=== PATIENT | male | born 1980 | race Caucasian/White ===

== ENCOUNTER 2017-09-08 08:03 | Inpatient (IN) | payer BC ==
[2017-09-08] MEDS ORDERED: SODIUM CHLORIDE 0.9% 1,000 ML IV STA (08:23)
[2017-09-08] MEDS ORDERED: PIPERACILLIN-TAZOBACTAM 3.375 GM in DEXTROSE/WATER 1 50ML.BAG IVPB STA (08:27)
[2017-09-08 09:02] LABS: ALT 624 U/L (21-72); AST 662 U/L (17-59); Albumin 4.3 g/dL (3.5-5.0); Alkaline Phosphatase 203 U/L (38-126); Amylase 196 U/L (30-110); Anion Gap 11 mmol/L; Blood Urea Nitrogen 11 mg/dL (9-20); Calcium 9.2 mg/dL (8.4-10.2); Carbon Dioxide 24 mmol/L (22-30); Chloride 106 mmol/L (98-107); Glucose 107 mg/dL (74-99); Potassium 4.4 mmol/L (3.5-5.1); Sodium 141 mmol/L (137-145); Total Bilirubin 2.3 mg/dL (0.2-1.3)
--- NOTE | 2017-09-08 09:07 | ED ---
General Adult HPI - General Source: patient, RN notes reviewed, old records reviewed Mode of arrival: EMS Limitations: no limitations <David Bermudez - Last Filed: 09/08/17 10:04> <Ramirez Bravo - Last Filed: 09/08/17 12:17> - General Chief complaint: Abdominal Pain Stated complaint: Poss gallstones Time Seen by Provider: 09/08/17 08:13 - History of Present Illness Initial comments: Patient 36-year-old male presented to the emergency room via EMS transfer from [facility] for abdominal pain. Patient does admit that pain started 3 days ago. Patient does admit to some episodes of nausea vomiting. Patient did go to the hospital to be checked because symptoms seem to be increasing. He did have a CT performed which did show evidence for cholecystitis. Patient was transferred by EMS here to [facility] for surgical consult. Patient states pain is located in the upper abdomen. Patient does admit pain currently 5/10 at this time. Patient was given dose or Rocephin at [facility]. Patient's labs been reviewed white count was 11,000. Lactic acid 1.9. Patient denies any recent fever, chills, shortness of breath, chest pain, back pain, numbness or tingling, dysuria or hematuria, constipation or diarrhea, headaches or visual changes, or any other complaints. (David Bermudez) - Related Data Home Medications Medication Instructions Recorded Confirmed Cyanocobalamin (Vitamin B-12) 1,000 mcg PO DAILY 09/08/17 09/08/17 [Vitamin B-12] Lisinopril-Hctz 20-25 mg 1 tab PO HS 09/08/17 09/08/17 [Zestoretic 20-25] Multivitamins, Thera [Multivitamin 1 tab PO DAILY 09/08/17 09/08/17 (formulary)] [place]-3 Fatty Acids/Fish Oil [Fish 1 cap PO DAILY 09/08/17 09/08/17 Oil 1,000 mg Softgel] Allergies Allergy/AdvReac Type Severity Reaction Status Date / Time No Known Allergies Allergy Unverified 09/08/17 08:14 Review of Systems ROS Other: All systems not noted in ROS Statement are negative. <David Bermudez - Last Filed: 09/08/17 10:04> ROS Other: All systems not noted in ROS Statement are negative. <Ramirez Bravo - Last Filed: 09/08/17 12:17> ROS Statement: Those systems with pertinent positive or pertinent negative responses have been documented in the HPI. Past Medical History History of Any Multi-Drug Resistant Organisms: None Reported Past Surgical History: No Surgical Hx Reported Past Psychological History: No Psychological Hx Reported Smoking Status: Never smoker Past Alcohol Use History: Occasional Past Drug Use History: None Reported <AidanDavid - Last Filed: 09/08/17 10:04> General Exam Limitations: no limitations <AidanDavid - Last Filed: 09/08/17 10:04> General appearance: alert, in no apparent distress Head exam: Present: atraumatic, normocephalic, normal inspection Eye exam: Present: normal appearance, PERRL, EOMI. Absent: scleral icterus, conjunctival injection, periorbital swelling ENT exam: Present: normal exam, mucous membranes moist Neck exam: Present: normal inspection. Absent: tenderness, meningismus, lymphadenopathy Respiratory exam: Present: normal lung sounds bilaterally. Absent: respiratory distress, wheezes, rales, rhonchi, stridor Cardiovascular Exam: Present: regular rate, normal rhythm, normal heart sounds. Absent: systolic murmur, diastolic murmur, rubs, gallop, clicks GI/Abdominal exam: Present: soft, normal bowel sounds. Absent: distended, tenderness, guarding, rebound, rigid Extremities exam: Present: normal inspection, full ROM, normal capillary refill. Absent: tenderness, pedal edema, joint swelling, calf tenderness Back exam: Present: normal inspection Neurological exam: Present: alert, oriented X3, CN II-XII intact Psychiatric exam: Present: normal affect, normal mood Skin exam: Present: warm, dry, intact, normal color. Absent: rash <Ramirez Bravo - Last Filed: 09/08/17 12:17> - General Exam Comments Initial Comments: General: The patient is awake and alert, in no distress, and does not appear acutely ill. Eye: Pupils are equal, round and reactive to light, extra-ocular movements are intact. No nystagmus. There is normal conjunctiva bilaterally. No signs of icterus. Ears, nose, mouth and throat: There are moist mucous membranes and no oral lesions. Neck: The neck is supple, there is no tenderness or JVD. Cardiovascular: There is a regular rate and rhythm. No murmur, rub or gallop is appreciated. Respiratory: Lungs are clear to auscultation, respirations are non-labored, breath sounds are equal. No wheezes, stridor, rales, or rhonchi. Gastrointestinal: Mild tenderness epigastric and right quadrant. No rebound, guarding. Musculoskeletal: Normal ROM, no tenderness. Strength 5/5. Sensation intact. Pulses equal bilaterally 2+. Neurological: A&O x 3. CN II-XII intact, There are no obvious motor or sensory deficits. Coordination appears grossly intact. Speech is normal. Skin: Skin is warm and dry and no rashes or lesions are noted. Psychiatric: Cooperative, appropriate mood & affect, normal judgment. (David Bermudez) Vital Signs 09/08/17 08:09 Temperature 98.5 F Pulse Rate 109 H Respiratory 20 Rate Blood Pressure 157/89 O2 Sat by Pulse 99 Oximetry Medical Decision Making - Lab Data Result diagrams: 09/08/17 08:35 09/08/17 08:35 <David Bermudez - Last Filed: 09/08/17 10:04> - Lab Data Result diagrams: 09/08/17 08:35 09/08/17 08:35 <Ramirez Bravo - Last Filed: 09/08/17 12:17> - Medical Decision Making The patient's ultrasound reviewed here shows borderline to mildly hydropic gallbladder with wall thickening and cholelithiasis. Findings could relate to a chronic cholecystitis. As read by radiologist. Patient did have a CT abdomen The hospital showing evidence for gallstones with wall thickening and pericholecystic edema/stranding suspecting a cholecystitis. Patient's liver enzymes elevated and amylase lipase elevated here in emergency room. Patient will be admitted to the hospital case discussed with attending physician Dr. Darden, who discussed case with on-call surgeon Dr. Huerta (David Bermudez) - Lab Data Lab Results 09/08/17 09/08/17 Range/Units 08:35 08:35 WBC 9.8 (3.8-10.6) k/uL RBC 4.72 (4.30-5.90) m/uL Hgb 15.1 (13.0-17.5) gm/dL Hct 43.4 (39.0-53.0) % MCV 91.9 (80.0-100.0) fL MCH 32.0 (25.0-35.0) pg MCHC 34.8 (31.0-37.0) g/dL RDW 13.6 (11.5-15.5) % Plt Count 277 (150-450) k/uL Neutrophils % 77 % Lymphocytes % 12 % Monocytes % 8 % Eosinophils % 2 % Basophils % 1 % Neutrophils # 7.6 (1.3-7.7) k/uL Lymphocytes # 1.2 (1.0-4.8) k/uL Monocytes # 0.7 (0-1.0) k/uL Eosinophils # 0.1 (0-0.7) k/uL Basophils # 0.1 (0-0.2) k/uL Sodium 141 (137-145) mmol/L Potassium 4.4 (3.5-5.1) mmol/L Chloride 106 (98-107) mmol/L Carbon Dioxide 24 (22-30) mmol/L Anion Gap 11 mmol/L BUN 11 (9-20) mg/dL Creatinine 0.83 (0.66-1.25) mg/dL Est GFR (CKD-EPI)AfAm >90 (>60 ml/min/1.73 sqM) Est GFR (CKD-EPI)NonAf >90 (>60 ml/min/1.73 sqM) Glucose 107 H (74-99) mg/dL Calcium 9.2 (8.4-10.2) mg/dL Total Bilirubin 2.3 H (0.2-1.3) mg/dL AST 662 H (17-59) U/L ALT 624 H (21-72) U/L Alkaline Phosphatase 203 H (38-126) U/L Total Protein 7.0 (6.3-8.2) g/dL Albumin 4.3 (3.5-5.0) g/dL Amylase 196 H (30-110) U/L Lipase 2295 H (23-300) U/L Disposition Is patient prescribed a controlled substance at d/c from ED?: No Time of Disposition: 10:04 <David Bermudez - Last Filed: 09/08/17 10:04> Is patient prescribed a controlled substance at d/c from ED?: No <Ramirez Bravo - Last Filed: 09/08/17 12:17> Clinical Impression: Cholecystitis, Pancreatitis Disposition: ADMITTED IP TO THIS HOSP Condition: Stable
[2017-09-08 09:13] LABS: Lipase 2295 U/L (23-300)
[2017-09-08 09:21] LABS: Basophils # (A) 0.1 k/uL (0-0.2); Basophils % (A) 1 %; Eosinophils # (A) 0.1 k/uL (0-0.7); Eosinophils % (A) 2 %; HCT 43.4 % (39.0-53.0); HGB 15.1 gm/dL (13.0-17.5); Lymphocytes # (A) 1.2 k/uL (1.0-4.8); Lymphocytes % (A) 12 %; MCHC 34.8 g/dL (31.0-37.0); MCV 91.9 fL (80.0-100.0); Mean Platelet Volume 7.5; Monocytes # (A) 0.7 k/uL (0-1.0); Monocytes % (A) 8 %; Neutrophils # (A) 7.6 k/uL (1.3-7.7); Neutrophils % (A) 77 %; Platelet Count 277 k/uL (150-450); RBC 4.72 m/uL (4.30-5.90); RDW 13.6 % (11.5-15.5); WBC 9.8 k/uL (3.8-10.6)
--- NOTE | 2017-09-08 09:48 | US ---
EXAMINATION TYPE: US abdomen limited DATE OF EXAM: 09/08/2017 COMPARISON: NONE AVAILABLE CLINICAL HISTORY: Pain. CT from other hospital showed GB disease. TECHNIQUE: Multiple sonographic images of the right upper quadrant are obtained. FINDINGS: EXAM MEASUREMENTS: Liver Length: 17.6 cm Gallbladder Wall: 0.6 cm CBD: 0.5 cm Right Kidney: 10.9 x 5.4 x 5.3 cm Pancreas: Tail obscured by overlying bowel gas Liver: Borderline in size, diffuse increased echogenicity and forefoot attenuation. There is a 1.8 c m area of focal fatty sparing along the gallbladder fossa. Gallbladder: Mildly hydropic at 10.5 cm, filled with calculi, and with circumferential gallbladder wa ll thickening thickening. Evidence for sonographic Arais's sign: No CBD: wnl Right Kidney: No hydronephrosis IMPRESSION: 1. At least moderate hepatic steatosis. Correlate with LFTs, lipid profile, and patient risk factors. 2. Borderline to mildly hydropic gallbladder with wall thickening and cholelithiasis. However, sonogr aphic Arias sign is reported absent. Findings probably relate to chronic cholecystitis. If concern f or early developing acute cholecystitis, consider HIDA scan.
[2017-09-08] MEDS ORDERED: NALOXONE 0.4 MG/ML 1 ML VIAL IV PRN (10:05)
[2017-09-08] MEDS ORDERED: ONDANSETRON 4 MG/2 ML VIAL IVP PRN (10:05)
[2017-09-08] MEDS ORDERED: SODIUM CHLORIDE 0.9% 1,000 ML IV ONE (10:05)
[2017-09-08 11:43] LABS: Appearance,Urine Clear (Clear); Bilirubin,Urine Negative (Negative); Blood,Urine Negative (Negative); Color,Urine Yellow; Glucose,Urine (UA) Negative (Negative); Ketones,Urine Negative (Negative); Leukocyte Esterase,Urine Negative (Negative); Nitrite,Urine Negative (Negative); Protein,Urine Negative (Negative); Specific Gravity,Urine 1.036 (1.001-1.035)
[2017-09-08] MEDS: MORPHINE SULFATE 4 MG/ML SYRINGE IV PRN ×2 (15:26→19:52)
--- NOTE | 2017-09-08 18:23 | P.GSCN ---
History of Present Illness Consult date: 09/08/17 History of present illness: Patient is a 36-year-old gentleman who reports almost 5 day history of epigastric and right upper quadrant abdominal pain. The last time he ate was yesterday of tomato soup including grilled cheese sandwich. He reports his pain was [id number] yesterday. He reports dull ache in the right upper quadrant. Incidentally he has a strong family history of gallbladder disorder with both his parents having their gallbladder removed at a young age. He presented with pancreatitis with lipase levels over 1999. Ultrasound is consistent with gallstones as well. ABDOMEN: No peritonitis. Tenderness along epigastrium and right upper quadrant. STUDIES: Ultrasound of the gallbladder reviewed consistent with cholecystitis PLAN: 1. May benefit from IV antibiotics for underlying cholecystitis. 2. Cholecystectomy was described however on hold pending resolution of pancreatitis. 3. Will follow closely. 4. Ideally recommend nothing by mouth except ice chips for underlying pancreatitis Past Medical History History of Any Multi-Drug Resistant Organisms: None Reported Past Surgical History: No Surgical Hx Reported Past Psychological History: No Psychological Hx Reported Smoking Status: Never smoker Past Alcohol Use History: Occasional Past Drug Use History: None Reported Medications and Allergies Home Medications Medication Instructions Recorded Confirmed Type Cyanocobalamin (Vitamin B-12) 1,000 mcg PO DAILY 09/08/17 09/08/17 History [Vitamin B-12] Lisinopril-Hctz 20-25 mg 1 tab PO HS 09/08/17 09/08/17 History [Zestoretic 20-25] Multivitamins, Thera [Multivitamin 1 tab PO DAILY 09/08/17 09/08/17 History (formulary)] [place]-3 Fatty Acids/Fish Oil [Fish 1 cap PO DAILY 09/08/17 09/08/17 History Oil 1,000 mg Softgel] Allergies Allergy/AdvReac Type Severity Reaction Status Date / Time No Known Allergies Allergy Unverified 09/08/17 08:14 Surgical - Exam Vital Signs Temp Pulse Resp BP Pulse Ox 98.5 F 109 H 20 157/89 99 09/08/17 08:09 09/08/17 08:09 09/08/17 08:09 09/08/17 08:09 09/08/17 08:09 Results - Labs 09/08/17 08:35 09/08/17 08:35 Abnormal Lab Results - Last 24 Hours (Table) 09/08/17 09/08/17 Range/Units 08:35 11:27 Glucose 107 H (74-99) mg/dL Total Bilirubin 2.3 H (0.2-1.3) mg/dL AST 662 H (17-59) U/L ALT 624 H (21-72) U/L Alkaline Phosphatase 203 H (38-126) U/L Amylase 196 H (30-110) U/L Lipase 2295 H (23-300) U/L Ur Specific [place] 1.036 H (1.001-1.035) Diabetes panel 09/08/17 Range/Units 08:35 Sodium 141 (137-145) mmol/L Potassium 4.4 (3.5-5.1) mmol/L Chloride 106 (98-107) mmol/L Carbon Dioxide 24 (22-30) mmol/L BUN 11 (9-20) mg/dL Creatinine 0.83 (0.66-1.25) mg/dL Glucose 107 H (74-99) mg/dL Calcium 9.2 (8.4-10.2) mg/dL AST 662 H (17-59) U/L ALT 624 H (21-72) U/L Alkaline Phosphatase 203 H (38-126) U/L Total Protein 7.0 (6.3-8.2) g/dL Albumin 4.3 (3.5-5.0) g/dL Calcium panel 09/08/17 Range/Units 08:35 Calcium 9.2 (8.4-10.2) mg/dL Albumin 4.3 (3.5-5.0) g/dL Pituitary panel 09/08/17 Range/Units 08:35 Sodium 141 (137-145) mmol/L Potassium 4.4 (3.5-5.1) mmol/L Chloride 106 (98-107) mmol/L Carbon Dioxide 24 (22-30) mmol/L BUN 11 (9-20) mg/dL Creatinine 0.83 (0.66-1.25) mg/dL Glucose 107 H (74-99) mg/dL Calcium 9.2 (8.4-10.2) mg/dL Adrenal panel 09/08/17 Range/Units 08:35 Sodium 141 (137-145) mmol/L Potassium 4.4 (3.5-5.1) mmol/L Chloride 106 (98-107) mmol/L Carbon Dioxide 24 (22-30) mmol/L BUN 11 (9-20) mg/dL Creatinine 0.83 (0.66-1.25) mg/dL Glucose 107 H (74-99) mg/dL Calcium 9.2 (8.4-10.2) mg/dL Total Bilirubin 2.3 H (0.2-1.3) mg/dL AST 662 H (17-59) U/L ALT 624 H (21-72) U/L Alkaline Phosphatase 203 H (38-126) U/L Total Protein 7.0 (6.3-8.2) g/dL Albumin 4.3 (3.5-5.0) g/dL
[2017-09-08] MEDS: PIPERACILLIN-TAZOBACTAM 3.375 GM in DEXTROSE/WATER 1 50ML.BAG IVPB SCH (19:48)
[2017-09-09] MEDS: PIPERACILLIN-TAZOBACTAM 3.375 GM in DEXTROSE/WATER 1 50ML.BAG IVPB SCH ×3 (03:08→20:02)
[2017-09-09 09:07] LABS: Basophils # (A) 0.1 k/uL (0-0.2); Basophils % (A) 1 %; Eosinophils # (A) 0.6 k/uL (0-0.7); Eosinophils % (A) 7 %; HCT 39.7 % (39.0-53.0); HGB 13.1 gm/dL (13.0-17.5); Lymphocytes # (A) 1.5 k/uL (1.0-4.8); Lymphocytes % (A) 19 %; MCH 31.7 pg (25.0-35.0); MCHC 33.1 g/dL (31.0-37.0); MCV 95.8 fL (80.0-100.0); Mean Platelet Volume 7.3; Monocytes # (A) 0.4 k/uL (0-1.0); Monocytes % (A) 5 %; Neutrophils # (A) 5.1 k/uL (1.3-7.7); Neutrophils % (A) 66 %; Platelet Count 241 k/uL (150-450); RBC 4.14 m/uL (4.30-5.90); WBC 7.7 k/uL (3.8-10.6)
[2017-09-09 09:14] LABS: ALT 714 U/L (21-72); AST 335 U/L (17-59); Albumin 3.8 g/dL (3.5-5.0); Alkaline Phosphatase 167 U/L (38-126); Anion Gap 7 mmol/L; Blood Urea Nitrogen 15 mg/dL (9-20); Calcium 8.3 mg/dL (8.4-10.2); Carbon Dioxide 28 mmol/L (22-30); Chloride 105 mmol/L (98-107); Glucose 80 mg/dL (74-99); Lipase 132 U/L (23-300); Potassium 4.4 mmol/L (3.5-5.1); Sodium 140 mmol/L (137-145); Total Bilirubin 0.8 mg/dL (0.2-1.3); Total Protein 6.2 g/dL (6.3-8.2)
[2017-09-09] MEDS ORDERED: HYDROmorphone 0.5 MG/0.5 ML SYRINGE IVP PRN (16:51)
[2017-09-09] MEDS ORDERED: fentaNYL (PF) 50 MCG/ML 2 ML AMP IV PRN (16:51)
--- NOTE | 2017-09-09 20:18 | P.PN ---
Subjective Progress Note Date: 09/09/17 Patient presented with acute cholecystitis including pancreatitis and hydrops of the gallbladder. Since placement of antibiotics, epigastric abdominal pain has improved. He has been on ice chips for 24+ hours. Objective - Vital Signs Vital signs: Vital Signs Temp 98.5 F 09/09/17 15:00 Pulse 79 09/09/17 15:00 Resp 16 09/09/17 15:00 BP 111/56 09/09/17 15:00 Pulse Ox 98 09/09/17 05:30 Intake & Output 09/09/17 09/09/17 09/10/17 06:59 18:59 06:59 Intake Total 350 Balance 350 Intake: Intake, IV Titration 350 Amount Piperacillin-Tazobactam 3 50 .375 gm In Dextrose/Water 1 50ml.bag @ 12.5 mls/hr IVPB Q8H [facility] Rx#: [id number] Sodium Chloride 0.9% 1, 300 000 ml @ 100 mls/hr IV . Q10H ONE Rx#:[id number] Other: # Voids 1 - Exam GENERAL: Well developed and in no acute distress. Pleasant. HEENT: No sclera icterus. Extraocular movements grossly intact. Moist buccal mucosa. Head is atraumatic, normocephalic. Hears conversational speech. No nasal drainage. NECK: Supple without lymphadenopathy CHEST: Non-labored respirations and equal bilateral excursions. CARDIOVASCULAR: Regular rate and rhythm. Palpable 2+ radial pulses. ABDOMEN: Soft, minimal tenderness along the epigastrium and right upper quadrant. MUSCULOSKELETAL: No clubbing, cyanosis or edema. NEUROLOGIC: No focal or lateralizing signs. PSYCH: Appropriate affect. Alert and oriented to person, place and time. SKIN: Good skin turgor. Well perfused. - Labs CBC & Chem 7: 09/09/17 07:55 09/09/17 07:55 Labs: Abnormal Lab Results - Last 24 Hours (Table) 09/09/17 09/09/17 Range/Units 07:55 07:55 RBC 4.14 L (4.30-5.90) m/uL Calcium 8.3 L (8.4-10.2) mg/dL AST 335 H (17-59) U/L ALT 714 H (21-72) U/L Alkaline Phosphatase 167 H (38-126) U/L Total Protein 6.2 L (6.3-8.2) g/dL Microbiology - Last 24 Hours (Table) 09/08/17 08:35 Blood Culture - Preliminary Blood No Growth after 24 hours Assessment and Plan (1) Pancreatitis Current Visit: Yes Status: Acute Code(s): K85.90 - ACUTE PANCREATITIS WITHOUT NECROSIS OR INFECTION, UNSP SNOMED Code(s): 31030027 (2) Cholecystitis Current Visit: Yes Status: Acute Code(s): K81.9 - CHOLECYSTITIS, UNSPECIFIED SNOMED Code(s): 63264146 Plan: 1. Benefits and risks of cholecystectomy described in detail. 2. Continue with antibiotics. 3. Nothing by mouth after midnight. 4. Robotic-assisted approach described.
[2017-09-09] MEDS: MORPHINE SULFATE 4 MG/ML SYRINGE IV PRN (21:56)
[2017-09-10] MEDS: PIPERACILLIN-TAZOBACTAM 3.375 GM in DEXTROSE/WATER 1 50ML.BAG IVPB SCH ×3 (04:48→21:06)
[2017-09-10] MEDS: LACTATED RINGERS 1,000 ML IV SCH ×2 (07:27→17:22)
[2017-09-10 11:41] LABS: Basophils % (A) 1 %; Eosinophils # (A) 0.5 k/uL (0-0.7); Eosinophils % (A) 5 %; HCT 41.6 % (39.0-53.0); HGB 13.9 gm/dL (13.0-17.5); Lymphocytes # (A) 1.6 k/uL (1.0-4.8); Lymphocytes % (A) 19 %; MCH 31.2 pg (25.0-35.0); MCHC 33.3 g/dL (31.0-37.0); MCV 93.7 fL (80.0-100.0); Mean Platelet Volume 7.3; Monocytes # (A) 0.5 k/uL (0-1.0); Monocytes % (A) 6 %; Neutrophils # (A) 5.7 k/uL (1.3-7.7); Neutrophils % (A) 67 %; Platelet Count 231 k/uL (150-450); RBC 4.44 m/uL (4.30-5.90); RDW 13.4 % (11.5-15.5); WBC 8.5 k/uL (3.8-10.6)
[2017-09-10 11:53] LABS: ALT 461 U/L (21-72); AST 89 U/L (17-59); Alkaline Phosphatase 142 U/L (38-126); Anion Gap 9 mmol/L; Blood Urea Nitrogen 14 mg/dL (9-20); Calcium 8.6 mg/dL (8.4-10.2); Carbon Dioxide 26 mmol/L (22-30); Chloride 104 mmol/L (98-107); Glucose 68 mg/dL (74-99); Potassium 4.4 mmol/L (3.5-5.1); Sodium 139 mmol/L (137-145); Total Bilirubin 0.6 mg/dL (0.2-1.3); Total Protein 6.5 g/dL (6.3-8.2)
--- NOTE | 2017-09-10 12:28 | P.PN ---
Subjective Progress Note Date: 09/10/17 Abdominal pain has now resolved. He has been NPO. Objective - Vital Signs Vital signs: Vital Signs Temp 96 F L 09/10/17 07:00 Pulse 74 09/10/17 08:00 Resp 18 09/10/17 08:00 BP 106/53 09/10/17 07:00 Pulse Ox 100 09/10/17 07:00 Intake & Output 09/09/17 09/10/17 09/10/17 18:59 06:59 18:59 Intake Total 350 50 Balance 350 50 Intake: Intake, IV Titration 350 50 Amount Piperacillin-Tazobactam 3 50 50 .375 gm In Dextrose/Water 1 50ml.bag @ 12.5 mls/hr IVPB Q8H [facility] Rx#: [id number] Sodium Chloride 0.9% 1, 300 000 ml @ 100 mls/hr IV . Q10H [facility] Rx#:[id number] Other: # Voids 2 - Exam GENERAL: Well developed and in no acute distress. Pleasant. HEENT: No sclera icterus. Extraocular movements grossly intact. Moist buccal mucosa. Head is atraumatic, normocephalic. Hears conversational speech. No nasal drainage. NECK: Supple without lymphadenopathy CHEST: Non-labored respirations and equal bilateral excursions. CARDIOVASCULAR: Regular rate and rhythm. Palpable 2+ radial pulses. ABDOMEN: Soft, nontender. MUSCULOSKELETAL: No clubbing, cyanosis or edema. NEUROLOGIC: No focal or lateralizing signs. PSYCH: Appropriate affect. Alert and oriented to person, place and time. SKIN: Good skin turgor. Well perfused. - Labs CBC & Chem 7: 09/10/17 11:15 09/10/17 11:15 Labs: Abnormal Lab Results - Last 24 Hours (Table) 09/10/17 Range/Units 11:15 Glucose 68 L (74-99) mg/dL AST 89 H (17-59) U/L ALT 461 H (21-72) U/L Alkaline Phosphatase 142 H (38-126) U/L Microbiology - Last 24 Hours (Table) 09/08/17 08:35 Blood Culture - Preliminary Blood No Growth after 48 hours Assessment and Plan (1) Pancreatitis Current Visit: Yes Status: Acute Code(s): K85.90 - ACUTE PANCREATITIS WITHOUT NECROSIS OR INFECTION, UNSP SNOMED Code(s): 20038232 (2) Cholecystitis Current Visit: Yes Status: Acute Code(s): K81.9 - CHOLECYSTITIS, UNSPECIFIED SNOMED Code(s): 86166385 Plan: 1. Recommend proceeding with robotic cholecystectomy today. 2. Potential discharge home in 24 hrs following surgery.
[2017-09-10] MEDS ORDERED: LACTATED RINGERS 1,000 ML IV ONE (17:03)
[2017-09-10] MEDS ORDERED: fentaNYL (PF) 50 MCG/ML 2 ML AMP ONE (17:51)
[2017-09-10] MEDS ORDERED: INDOCYANINE GREEN 25 MG VIAL IV ONE (17:51)
[2017-09-10] MEDS ORDERED: HYDROmorphone (PF) 1 MG/ML ONE (17:51)
[2017-09-10] MEDS ORDERED: SUCCINYLCHOLINE CHLORIDE 100 MG/5 ML SYR IV ONE (17:51)
[2017-09-10] MEDS ORDERED: NEOSTIGMINE 1 MG/ML 10 ML VIAL ONE (17:51)
[2017-09-10] MEDS ORDERED: LIDOCAINE 1% INJ 10MG/ML (20 ML MDV) ONE (17:51)
[2017-09-10] MEDS ORDERED: PROPOFOL 10 MG/ML 20 ML VIAL IV ONE (17:51)
[2017-09-10] MEDS ORDERED: GLYCOPYRROLATE 0.2 MG/ML 2 ML VIAL ONE (17:51)
[2017-09-10] MEDS ORDERED: ROCURONIUM BROMIDE 10 MG/ML 10 ML VIAL IV ONE (17:51)
[2017-09-10] MEDS ORDERED: MIDAZOLAM 2 MG/2 ML VIAL ONE (17:51)
[2017-09-10] MEDS ORDERED: INDOCYANINE GREEN 25 MG VIAL IV STA (18:05)
[2017-09-10] MEDS ORDERED: BUPIVACAINE (PF) 0.5% 30 ML VIAL SQ ONE ×2 (18:07→18:12)
--- NOTE | 2017-09-10 19:30 | P.OP ---
Date of Procedure: 09/10/17 Description of Procedure: SURGEON: SMITH DORADO MD PREOPERATIVE DIAGNOSES: 1. Symptomatic gallstones 2. Acute cholecystitis 3. Hydrops gallbladder 4. Elevated liver transaminases 5. Gastroesophageal reflux disease 6. Obesity, BMI 30.3 POSTOPERATIVE DIAGNOSES: 1. Symptomatic gallstones 2. Acute cholecystitis due to cystic duct obstruction 3. Hydrops gallbladder 4. Elevated liver transaminases 5. Gastroesophageal reflux disease 6. Obesity, BMI 30.3 7. Fatty liver disease OPERATION: Robotic-assisted da Abdias Xi laparoscopic cholecystectomy, multiport with FIREFLY ESTIMATED BLOOD LOSS: 10 mL. SPECIMENS REMOVED: Gallbladder. COMPLICATIONS: None. OPERATIVE FINDINGS: 1. Chronic cholecystitis INDICATIONS: The patient is a 36-year-old male who presents with cholelcystitis. Surgical intervention with a laparoscopic cholecystectomy was described at length including injury to the biliary tree, bleeding, infection, need for further surgery. Informed consent was obtained. Robotic assisted laparoscopic approach was described. Benefits and risks of the procedure including but not limited to bleeding, infection, injury to the biliary tree was described. Informed consent was obtained. DESCRIPTION OF PROCEDURE: Patient was brought to the operating room, placed in supine position. After general induction, the abdomen had been prepped and draped in standard sterile fashion. The robotic da Abdias XI system was primed. After a timeout protocol was performed, the patient had been prepped and draped in standard sterile fashion. The patient was injected with indocyanine green. A 5 mm 0 degrees laparoscopic trocar entry was performed along the left upper quadrant. The abdomen insufflated to 15 mmHg pressure which she tolerated well. Diagnostic laparoscopy demonstrated no injury to bowel viscera or mesentery. The liver surface was unremarkable. Next, two 8 mm robotic ports were placed along the right upper abdomen. The camera 8-mm port was maintained along the epigastrium. Another 8 mm port was placed along the left upper abdominal wall after exchanging the 5 mm port. Please note that the ports were placed at least 10 to 15 cm away from the target anatomy of the gallbladder. The robot was docked along the left lateral abdomen. The patient was repositioned in reverse Trendelenburg position. Using a grasper for arm 3, a grasper for arm 4, including hook cautery for arm 1 , the robotic system was docked and primed as described. Instruments were interchanged by the kindergarten teacher assistant including hook cautery, Bovie cautery and clip appliers. I had sat at the console. Adhesions were identified along the infundibulum of the gallbladder and addressed using hook cautery. The gallbladder fundus was retracted over the dome of the liver. Initial attention was brought to the infundibulum which was gently retracted in the inferior lateral approach. Using a grasper, the cystic duct including the cystic artery was carefully skeletonized. FIREFLY was used to identify the cystic artery and cystic structures. Large PLASTIC clips were used throughout the entire case. Using a clip semiconductor wafers tester 2 clips were placed proximally, and 1 clip was placed distally along the cystic duct and then cauterized with the cautery. Again care was taken to avoid any injury to the biliary tree as the common bile duct was clearly visualized during this portion of dissection. Next, the cystic artery was similarly clipped and cauterized. Electro-Bovie cautery was used to remove the gallbladder from the hepatic fossa. Hemostasis was checked and found to be adequate. The robot was undocked. I re-scrubbed into the case. Using a 10 mm Endo Catch bag via the left upper quadrant incision, the specimen was removed from the abdominal cavity. All pneumoperitoneum instruments were evacuated from the abdominal cavity. The incisions were reapproximated using 4-0 Monocryl in an interrupted subcuticular fashion. Fascial defect of the left upper quadrant was closed using 0 Vicryl in Rayshawn Deras. Please note along the trocar sites, local anesthetic was placed as a field block prior to insertion of all instruments. Liquid glue was applied to the skin. At the end of the procedure needle, sponge, and instrument count had been verified correct by the surgical pathologist. The patient was transferred to postanesthesia care unit in stable condition. Intraoperative films were shared with the patient's family who were very pleased with the level of care. Console time 42 minutes
[2017-09-10] MEDS ORDERED: ACETAMINOPHEN IV (For NPO) 1,000 MG in EMPTY BAG 1 BAG IVPB ONE (19:34)
[2017-09-10] MEDS ORDERED: NALOXONE 0.4 MG/ML 1 ML VIAL IV PRN (19:34)
[2017-09-10] MEDS ORDERED: LISINOPRIL-HCTZ 20-25 MG 1 EACH TAB PO SCH (21:00)
[2017-09-10] MEDS: HYDROcodone/APAP 5-325MG 1 EACH TAB PO PRN (21:52)
[2017-09-11] MEDS: PIPERACILLIN-TAZOBACTAM 3.375 GM in DEXTROSE/WATER 1 50ML.BAG IVPB SCH ×2 (04:04→11:36)
[2017-09-11] MEDS: HYDROcodone/APAP 5-325MG 1 EACH TAB PO PRN ×3 (04:05→15:37)
[2017-09-11] MEDS ORDERED: PANTOPRAZOLE 40 MG/10 ML VIAL IV SCH (09:00)
[2017-09-11 09:37] LABS: ALT 370 U/L (21-72); AST 80 U/L (17-59); Albumin 4.3 g/dL (3.5-5.0); Alkaline Phosphatase 133 U/L (38-126); Anion Gap 10 mmol/L; Blood Urea Nitrogen 11 mg/dL (9-20); Carbon Dioxide 29 mmol/L (22-30); Chloride 100 mmol/L (98-107); Glucose 154 mg/dL (74-99); Potassium 4.1 mmol/L (3.5-5.1); Sodium 139 mmol/L (137-145); Total Bilirubin 0.7 mg/dL (0.2-1.3); Total Protein 6.9 g/dL (6.3-8.2)
[2017-09-11 15:37] VITALS: BP 122/71; PULSE 91; RESP 20; TEMP 98.2
[2017-09-11] MEDS: LACTATED RINGERS 1,000 ML IV SCH (17:20)
--- NOTE | 2017-09-11 18:40 | P.DS ---
Providers Date of admission: 09/08/17 10:48 Expected date of discharge: 09/11/17 Attending physician: Laly Huerta Primary care physician: James Oliver - Discharge Diagnosis(es) (1) Pancreatitis Current Visit: Yes Status: Acute (2) Cholecystitis Current Visit: Yes Status: Acute Hospital Course: Patient seen. Abdominal pain resolved. LFTs improving. Pertinent Studies: US gallbladder shows hydrops gallbladder Procedures: Robotic cholecystectomy Patient Condition at Discharge: Stable Plan - Discharge Summary Discharge Rx Participant: Yes New Discharge Prescriptions: New HYDROcodone/APAP 5-325MG [[place] 5-325] 1 tab PO Q4HR PRN 3 Days #18 tab PRN Reason: Pain Continue Multivitamins, Thera [Multivitamin (formulary)] 1 tab PO DAILY Cyanocobalamin (Vitamin B-12) [Vitamin B-12] 1,000 mcg PO DAILY Lisinopril-Hctz 20-25 mg [Zestoretic 20-25] 1 tab PO HS Discontinued [place]-3 Fatty Acids/Fish Oil [Fish Oil 1,000 mg Softgel] 1 cap PO DAILY Discharge Medication List Cyanocobalamin (Vitamin B-12) [Vitamin B-12] 1,000 mcg PO DAILY 09/08/17 [ History] Lisinopril-Hctz 20-25 mg [Zestoretic 20-25] 1 tab PO HS 09/08/17 [History] Multivitamins, Thera [Multivitamin (formulary)] 1 tab PO DAILY 09/08/17 [History ] HYDROcodone/APAP 5-325MG [[place] 5-325] 1 tab PO Q4HR PRN 3 Days #18 tab [Rx] Follow up Appointment(s)/Referral(s): James Oliver MD [Primary Care Provider] - 1-2 days Patient Instructions/Handouts: Laparoscopic Cholecystectomy (DC) Activity/Diet/Wound Care/Special Instructions: No lifting for 4 pounds in 3 weeks. May shower. No bath tub soaks. Low-fat diet. Discharge Disposition: HOME SELF-CARE
--- NOTE | 2017-09-11 18:42 | P.PN ---
Progress Note - Text Progress Note Date: 09/11/17 To whom it may concern: Stephen Mensah is under my surgical care. He may not return to work until September 24 when he may be cleared by me. He had a serious medical illness and was hospitalized from 09/08 to 09/11/2017. Regards, Laly Huerta MD
== END 2017-09-11 18:55 | disposition home or self-care (01) | DRG 417 ==
LOC: EC 08:03 → 4MS4W 10:48 → 5MS5E 15:16
PROVIDERS: ADMIT Surgery Plastic and Reconstructive Surgery; ATTEND Surgery Plastic and Reconstructive Surgery
PROC: 0FT44ZZ Resection of Gallbladder, Percutaneous Endoscopic Approach (ICD-10-PCS; principal; 2017-09-08)
PROC: 8E0W4CZ Robotic Assisted Procedure of Trunk Region, Percutaneous Endoscopic Approach (ICD-10-PCS; 2017-09-08)
DX: K80.01 Calculus of gallbladder with acute cholecystitis with obstruction (principal); K85.90 Acute pancreatitis without necrosis or infection, unspecified; K82.1 Hydrops of gallbladder; E66.9 Obesity, unspecified; K21.9 Gastro-esophageal reflux disease without esophagitis; K76.0 Fatty (change of) liver, not elsewhere classified; I10 Essential (primary) hypertension; Z68.30 Body mass index [BMI] 30.0-30.9, adult; Z79.899 Other long term (current) drug therapy
CPT/HCPCS: 36415; 76705; 80053; 81003; 82150; 83690; 85025; 87040; 88304; 96361; 96365; 96366; 96375; 99285